=== PATIENT | male | born 1950 | race Caucasian/White ===

== ENCOUNTER 2017-02-10 13:54 | Observation (INO) | payer BC, MEDICARE ==
--- NOTE | ~2017-02-10 | HP ---
History And Physical [facility] [id number] [place]. [address] NAME: RUTHIE BROWNLEE : 50 STATUS : ADM Antonio PAT#: [id number] AGE: 66 ADM/REG DATE : 02/10/17 MR#: [id number] REPORT SERV DATE: 02/11/17 DICTATED BY: DATE: REPORT STATUS : Draft TRANSCRIBED BY: MODL DATE: 02/11/17 DATE OF ADMISSION: 02/10/2017 CHIEF COMPLAINT: Chest pain and pressure. HISTORY OF PRESENT ILLNESS: This is a 66-year-old white male without a history of coronary artery disease, who came in with substernal chest pain and pressure 8 to 06/09 that has been occurring intermittently x1 week. He denies it radiating anywhere. He denies having any shortness of breath, palpitations, nausea, vomiting, or diaphoresis during that event. Currently, he reports to have mild some sternal chest pain /10 without any pressure. He denies any pain radiating anywhere. He denies any recent illness or orthopnea or edema. The patient also denies any personal history of myocardial infarction, stroke, DVT, or pulmonary embolus. The patient denies any recent fever or chills. No palpitations. No syncopal episodes. Denies PND or orthopnea. PAST MEDICAL HISTORY: Hypertension, hyperlipidemia, and prostate cancer. PAST SURGICAL HISTORY: Prostatectomy, plantar callus removed from his left foot. 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 He is with two children. He has smoked one pack per day for 35 years. Recently, he has decreased his smoking to half a pack per day. He occasionally drinks alcohol socially. He denies any illicit drug use. FAMILY HISTORY: He denies any family history of coronary artery disease. REVIEW OF SYSTEMS: A 14-point review of systems was performed significant for HPI no other contributory diagnoses identified. ALLERGIES: NO KNOWN ALLERGIES. HOME MEDICATIONS: Protonix 40 mg p.o. daily, lisinopril 20 mg p.o. daily, Norvasc 5 mg p.o. daily, and Pravachol 40 mg p.o. at bedtime. PHYSICAL EXAMINATION: VITAL SIGNS: Blood pressure 107/56, heart rate 52, temperature 97.7, respirations 20, O2 of 94%. BMI of 28.9. GENERAL: Cooperative, in no apparent distress. HEENT: Head normocephalic, anicteric. Normal EOM. PERRLA. No xanthelasma. Nares patent. Moist mucous membranes. NECK: Trachea midline. No thyromegaly, JVD or bruits. RESPIRATORY: Clear to auscultation bilaterally anterior and posterior. Respirations even and unlabored. No wheezes, rhonchi or crackles. CARDIOVASCULAR: Regular rate and rhythm. No murmur, rub or gallop appreciated. No chest wall History And Physical [address] [address] NAME: RUTHIE BROWNLEE : 50 STATUS : ADM Antonio PAT#: [id number] AGE: 66 ADM/REG DATE : 02/10/17 MR#: [id number] REPORT SERV DATE: 02/11/17 DICTATED BY: DATE: REPORT STATUS : Draft TRANSCRIBED BY: MODL DATE: 02/11/17 tenderness to palpation. ABDOMEN: Soft, nontender, nondistended, normal bowel sounds auscultated throughout. No masses or organomegaly. EXTREMITIES: No peripheral edema. DP/PT and radial pulses palpable bilaterally. No clubbing or cyanosis. SKIN: Warm, dry and intact. Normal turgor. No pallor or cyanosis. NEURO/PSYCH: Alert, oriented x3 with no acute distress. Affect appropriate to current situation. LABORATORY DATA: Troponins x2 have been less than 0.02. Sodium 140, potassium 4.6, BUN 13, creatinine 0.96, GFR 95, glucose 107, calcium 8.9, magnesium 2.3. White blood cells 10.7, hemoglobin 15.1, hematocrit 44.0, platelets 177, and INR 1.0. IMAGING: Chest x-ray shows no acute cardiopulmonary abnormalities identified. EKG done on 02/10/2017 at 1739 hours shows sinus betzaida at 49. playground monitor shows sinus rhythm at 61 without any ectopy. ASSESSMENT AND PLAN: 1. Substernal chest pain, nonreproducible on exam. The patient has been observed in the CPOU to rule out myocardial infarction with serial enzymes and serial EKGs. The patient's troponins x2 have been negative. The patient's cardiac risk factors have been hypertension and hyperlipidemia. We will keep the patient n.p.o. and plan an MPI today. If the stress test shows low risk or no ischemia, I may discharge the patient home. If anything suggestive of ischemia, Cardiology referral will be initiated. The patient will be asked to follow up with his PCP in one week with all the studies being sent to that office. 2. Hypertension, appears to be stable at 107/56. The patient is on Norvasc and lisinopril. 3. Hyperlipidemia. The patient is on statin. 4. Tobacco abuse. Smoking cessation has been discussed. EKS/MODL Servando Melendez APN / [id number] CC: Mary Carmen Aguilar, MSN, EMPLOYMENT TRAINER-BC Demetrio Botello D.O.
[2017-02-10 11:54] LABS: BASOPHILS 0.3 %; BASOPHILS ABSOLUTE 0.03 10/3/uL (0.0-0.16); EOSINOPHILS 1.8 %; EOSINOPHILS ABSOLUTE 0.19 10/3/uL (0.0-0.53); HEMOGLOBIN 15.1 g/dL (13.6-17.8); IMMATURE GRANULOCYTES 0.3 %; IMMATURE GRANULOCYTES ABSOLUTE 0.03 10/3/uL (0.0-0.11); LYMPHOCYTES 28.9 %; LYMPHOCYTES ABSOLUTE 3.08 10/3/uL (0.67-4.30); MEAN CORPUS HGB CONC 34.3 g/dL (32.0-36.0); MEAN CORPUSCULAR HEMOGLOB 30.8 pg (26.0-34.0); MEAN CORPUSCULAR VOLUME 89.6 fL (80-100); MEAN PLATELET VOLUME 10.8 fL (9.2-13.0); MONOCYTES 4.8 %; MONOCYTES ABSOLUTE 0.51 10/3/uL (0.21-1.20); NEUTROPHILS 63.9 %; NEUTROPHILS ABSOLUTE 6.82 10/3/uL (2.02-8.40); PLATELET COUNT 177 10/3/uL (150-400); RED CELL COUNT 4.91 10/6/uL (4.7-6.1); WHITE BLOOD CELLS 10.7 10/3/uL (4.5-10.5)
[2017-02-10 11:55] LABS: MANUAL DIFF NO %
[2017-02-10 12:01] LABS: PARTIAL THROMBO TIME 31.1 SEC (22.5-37.2)
[2017-02-10 12:12] LABS: BUN (BLOOD UREA NITROGEN) 13 MG/DL (6-23); CALCIUM, SERUM 8.9 MG/DL (8.5-10.4); CHEST PAIN PROFILE TAT 0 Hrs 22 Mins; CHLORIDE, SERUM 108 MMOL/L (96-112); CO2 (CARBON DIOXIDE) 29 MMOL/L (24-34); CREATININE 0.96 MG/DL (0.70-1.30); GFR AFRICAN AMERICAN 95 ML/MIN (>=60); GFR NON AFRICAN AMERICAN 82 ML/MIN (>=60); GLUCOSE, SERUM 107 MG/DL (60-99); POTASSIUM, SERUM 4.6 MMOL/L (3.5-5.3); SODIUM, SERUM 140 MMOL/L (135-148); TROPONIN I <0.02 NG/ML (<0.05)
[~2017-02-10 13:54] MED LIST: CIP5 PO; PRAVACHOL40 MG PO; PRIN10 PO
[2017-02-10] MEDS ORDERED: NORV5 PO (14:22)
[2017-02-10] MEDS ORDERED: PRAVACHOL40 MG PO (14:22)
[2017-02-10] MEDS ORDERED: PRIN20 PO (14:22)
[2017-02-10] MEDS ORDERED: PROTONIX PO (14:22)
[2017-06-14] MEDS ORDERED: PRIN20 PO (23:25)
[2017-06-14] MEDS ORDERED: NORV5 PO (23:25)
[2017-06-14] MEDS ORDERED: PRAVACHOL40 MG PO (23:26)
[2017-06-14] MEDS ORDERED: OMNICEF300 PO (23:27)
[2017-06-14] MEDS ORDERED: TYLENOL SINUS PO (23:28)
[2017-06-19] MEDS ORDERED: DUONEB INH (12:18)
[2017-06-19] MEDS ORDERED: PULRESP.5 INH (12:19)
[2017-06-19] MEDS ORDERED: ZOFRANODT8 PO (12:19)
[2017-06-19] MEDS ORDERED: BROVANA15 MCG INH (12:20)
== END 2017-02-11 15:24 | disposition home or self-care (01) ==
LOC: ER 13:54 → CDU1 14:12
PROVIDERS: Emergency Medicine
DX: R07.2 Precordial pain (principal); I10 Essential (primary) hypertension; E78.5 Hyperlipidemia, unspecified; F17.210 Nicotine dependence, cigarettes, uncomplicated; Z85.46 Personal history of malignant neoplasm of prostate; Z79.899 Other long term (current) drug therapy; Z98.890 Other specified postprocedural states
CPT/HCPCS: 71010; 78452; 80048; 83735; 84484; 85025; 85610; 85730; 93005; 93017; 96374; 99285; A9270-GY; A9502; G0378